=== PATIENT | male | born 1955 | race Caucasian/White ===

== ENCOUNTER → 2023-07-13 09:17 | Outpatient (REF) | payer MEDICARE, OTHER, SELFPAY | LOC: HWRAD 09:17 | PROVIDERS: ATTENDING PHYSICIAN Surgery; FAMILY PHYSICIAN Family Medicine | DX: N28.1 Cyst of kidney, acquired (principal) | CPT/HCPCS: 76770 ==

== ENCOUNTER 2023-08-02 06:46 | Day surgery (SDC) | payer MEDICARE, OTHER, SELFPAY ==
--- NOTE | 2023-07-26 13:41 | PTCARENOTE ---
Mindy @ Dr. Napier office notified of patients 07/26 UA 04-14 WBC
[2023-07-26 16:47] VITALS: BMI 46.1
[2023-08-02] VITALS (11 sets, daily range): BP systolic 121–163; BP diastolic 71–90; BMI 46.1
[2023-08-02] MEDS: NORMOSOL-R 1000 IV (14:04)
[2023-08-02] MEDS: LOPRESSOR 50 MG PO (14:33)
--- NOTE | 2023-08-02 15:54 | W.IMMPOSTOP ---
Surgical Immed Post Op Note
-
Primary Surgeon: Flavio
Pre-op Diagnosis: BPH w/ massive intravesical obstructing median lobe
Post-op Diagnosis: Same
Procedure Performed: plasma button vaporization TURP
Anesthesia Type: GETA
Specimen / Cultures: None/None
Estimated Blood Loss: 1 cc
Drains: 22Fr 3-way silicone Lan catheter (30 cc sterile water in balloon)
Complications: None
Operative Findings: complete vaporization of massive intravesical median lobe, excellent hemostasis in no flow low pressure state, bilateral UOs/verumontanum/external urethral sphincter uninvolved
[2023-08-02] MEDS: NSS 1000 IV (17:03)
[2023-08-02] MEDS: DETROL LA 4 MG PO (17:03)
[2023-08-02] MEDS: Pyridium 200 MG PO (17:03)
--- NOTE | 2023-08-02 18:14 | PTCARENOTE ---
Pt arrived to 2S in bed. Full assessment completed. Pt drowsy but easily arouses to verbal stimuli. IVF infusing per order. CBI infusing per order, clear to pink tinged urine output noted. Bed locked and in the lowest position, safety maintained.
Oriented to room and call solomon, significant other at bedside.
[2023-08-03 01:53] VITALS: BP 138/75
[2023-08-03 03:00] VITALS: BP 133/68
[2023-08-03 04:52] LABS: % Basophils 0.1 % (0-2); % Immature Granulocytes 0.4 % (0-0.5); % Lymphocytes 10.1 % (20.5-51.1); % Monocytes 3.6 % (1.7-9.3); % Neutrophils 85.8 % (42.2-75.2); Absolute Lymphocytes 0.9 10^3/uL (1.2-3.4); Absolute Monocytes 0.3 10^3/uL (0.1-0.6); Absolute Neutrophils 7.3 10^3/uL (1.4-6.5); Hematocrit 42.2 % (39.0-52.0); Hemoglobin 13.7 g/dL (13.0-18.0); Mean Corp Hgb Conc. 32.5 g/dL (33.0-37.0); Mean Corpuscular Hgb 29.3 pg (27.0-31.0); Mean Corpuscular Volume 90.4 fL (80.0-94.0); Mean Platelet Volume 9.9 fL (7.4-10.4); Nucleated Red Blood Cells % 0 % (-); Platelet Count 282 10^3/uL (130-400); Red Blood Cell Count 4.67 10^6/uL (4.70-6.10); Red Cell Dist. Width 13.2 % (11.5-14.5); White Blood Cell Count 8.5 10^3/uL (4.8-10.8)
[2023-08-03 05:22] LABS: Blood Urea Nitrogen 19 mg/dl (9-20); Calcium 8.7 mg/dl (8.4-10.2); Carbon Dioxide 28 mmol/L (22-30); Chloride 104 mmol/L (98-107); Estimated Creatinine Clearance 105 ml/min; Glucose 127 mg/dl (70-99); Potassium 4.3 mmol/L (3.5-5.1); Sodium 140 mmol/L (135-145); eGFR > 60.00
[2023-08-03] MEDS: NSS 1000 IV (06:36)
[2023-08-03 07:03] VITALS: BP 136/84
--- NOTE | 2023-08-03 08:50 | W.DS.TRANS ---
DC Summary - [facility]
-
Discharge Instructions:
Discharge Diagnosis/Procedures BPH w/ median lobe obstruction
Diet No restrictions
Additional Diets n/a
Activity No strenuous activity
Additional Activity No strenuous activity or heavy lifting for 1
week after surgery per Dr. Muniz
Driving Restrictions No driving for 24 hours
Bathing Restrictions None
Blood Work n/a
Others Tests n/a
Wound Care n/a
Instructions:
Stand-Alone Forms:
Changes to Home Medications: No
Discharge Medications:
DC Medications w/original date entered in [facility]
losartan 50 mg tablet 50 mg PO DAILY 07/28/23
metoprolol succinate 50 mg tablet,extended release 24 hr 50 mg PO DAILY 07/28/23
multivitamin 1 tab PO DAILY 07/28/23
naltrexone 8 mg-bupropion 90 mg tablet,extended release (Contrave) 2 tab PO BID 07/28/23
ciprofloxacin HCl 500 mg tablet 500 mg PO DAILY 5 days #5 tabs 08/03/23
phenazopyridine 200 mg tablet (Pyridium) 200 mg PO BID PRN burning with urination 3 days #6 tabs 08/03/23
Home Medication Changes
New prescriptions on discharge:
Ciprofloxacin 500 mg daily x5 days (5 tablets)
Pyridium 200 mg twice daily as needed for burning with urination (6 tablets)
Pending Results: No
[2023-08-03] MEDS: DETROL LA 4 MG PO (08:55)
[2023-08-03] MEDS: COZAAR 50 MG PO (08:55)
[2023-08-03] MEDS: TOPROL XL 50 MG PO (08:56)
[2023-08-03] MEDS: THERAGRAN 1 TABLET PO (08:56)
[2023-08-03] MEDS: Pyridium 200 MG PO (08:58)
--- NOTE | 2023-08-03 10:04 | CM ---
Initial assessment completed with patient with in room. Patient lives with in a 2 story home with B/B on 2nd floor, 1/2 bath on 1st, 2 steps to enter, No DME or services in home. Pharmacy is [facility] in [facility] and PCP is
Manasa Horan. Patient had TURP on 08/02/23. Patient to be discharged today after urinating. Anticipate home with no needs.
--- NOTE | 2023-08-03 16:09 | CM ---
Patient has been medically cleared for discharge to home with no additional skilled services. transported home.
== END 2023-08-03 11:34 | disposition home or self-care (01) ==
LOC: SDS 06:46
PROVIDERS: ATTENDING PHYSICIAN Surgery; FAMILY PHYSICIAN Family Medicine
DX: N40.1 Benign prostatic hyperplasia with lower urinary tract symptoms (principal); N13.8 Other obstructive and reflux uropathy
CPT/HCPCS: 52601; 80048; 85025